=== PATIENT | male | born 1970 | race Two or more races ===

== ENCOUNTER 2024-02-06 17:58 | Inpatient (IN) | payer MEDICAID ==
[~2024-02-06] VITALS: Ht 182.9 cm; Wt 95.3 kg
[2024-02-06 18:07] VITALS: O2SAT 100
[2024-02-06 19:36] LABS: BASOPHILS % 0.6 % (0.0-2.0); EOSINOPHILS % 1.2 % (0.0-5.0); HEMATOCRIT. 45.1 % (42.0-52.0); HEMOGLOBIN. 14.8 g/dL (14.0-18.0); LYMPHOCYTES % 15.4 % (20.0-50.0); MEAN CORPUSCULAR HEMOGLOBIN 28.5 pg (28.0-32.0); MEAN CORPUSCULAR HGB CONC 32.8 g/dL (31.0-37.0); MEAN CORPUSCULAR VOLUME 86.9 fL (80.0-94.0); MEAN PLATELET VOLUME 8.4 fl (7.4-10.4); MONOCYTES % 5.7 % (2.0-8.0); NEUTROPHILS % 77.1 % (40.0-76.0); PLATELET 289 x1000/uL (130-400); RED BLOOD CELL COUNT 5.19 mill/uL (4.7-6.1); RED CELL DISTRIBUTION WIDTH 14.7 % (11.6-14.6); WHITE BLOOD COUNT 6.2 x1000/uL (4.5-11.0)
[2024-02-06 19:42] LABS: CHLORIDE 108 mEq/L (98-107); POTASSIUM 3.2 mEq/L (3.5-5.1); SODIUM 139 mEq/L (136-145)
[2024-02-06 19:43] LABS: CALCIUM 8.7 mg/dL (8.7-10.4); CARBON DIOXIDE 23 mEq/L (21-32)
[2024-02-06 19:48] LABS: CREATININE 1.3 mg/dL (0.6-1.3); GLUCOSE 199 mg/dL (70-105); UREA NITROGEN BLOOD 15 mg/dL (9-23)
[2024-02-06 19:50] LABS: ACETAMINOPHEN < 2 ug/mL (10-30)
[2024-02-06 20:01] LABS: ETHANOL BLOOD < 10 mg/dL (<10); TROPONIN I HIGH SENSITIVITY 191 ng/L (3.0-53)
[2024-02-06] MEDS: POTASSIUM CHLORIDE 20MEQ TABLET SR PO ONE (21:36)
[2024-02-07 02:51] LABS: CLARITY URINE CLOUDY (CLEAR); COLOR URINE DARK YELLOW (YELLOW); GLUCOSE URINE 2+ (NEGATIVE); KETONES URINE NEGATIVE (NEGATIVE); LEUKOCYTE ESTERASE URINE NEGATIVE (NEGATIVE); NITRITE URINE NEGATIVE (NEGATIVE); OCCULT BLOOD URINE NEGATIVE (NEGATIVE); PH URINE 5.5 (4.5-8.0); PROTEIN URINE 2+ (NEGATIVE); UROBILINOGEN URINE 0.2 E.U./dL (0.2-1.0)
[2024-02-07] MEDS ORDERED: ACETAMINOPHEN 325MG TABLET PO PRN (04:00)
[2024-02-07] MEDS ORDERED: ONDANSETRON HCL 4MG/2ML INJ IV PRN (04:00)
[2024-02-07] MEDS ORDERED: HYDROCODONE/ACETAMINOPHEN 5/325MG TABLET PO PRN (04:00)
[2024-02-07 04:38] LABS: TROPONIN I HIGH SENSITIVITY 272 ng/L (3.0-53)
[2024-02-07 04:54] LABS: RBC URINE 0-2 /hpf (0-2); WBC URINE 0-2 /hpf (0-2)
[2024-02-07 04:56] LABS: AMORPHOUS SEDIMENT URINE 1+ /lpf; BACTERIA URINE NONE SEEN; SQUAMOUS EPITHELIAL CELL URINE NONE SEEN /lpf (RARE/1+)
[2024-02-07 06:00] VITALS: BP 168/113; PULSE 93; RESP 20; TEMP 98
[2024-02-07 08:00] VITALS: BP 144/105; PULSE 89; RESP 20; TEMP 97.6
[2024-02-07] MEDS: ENOXAPARIN 40MG/0.4ML SYR SUBCUT SCH (09:32)
[2024-02-07 09:52] LABS: *AMPHETAMINES SCREEN URINE PRESUMPTIVE POSITIVE (NEGATIVE); *BARBITURATES SCREEN URINE NEGATIVE (NEGATIVE); *BENZODIAZEPINES SCREEN URINE NEGATIVE (NEGATIVE); *COCAINE SCREEN URINE NEGATIVE (NEGATIVE); CANNABINOID URINE SCREEN NEGATIVE (NEGATIVE); METHADONE URINE SCREEN NEGATIVE (NEGATIVE); OPIATES URINE SCREEN NEGATIVE (NEGATIVE); PHENCYCLIDINE URINE SCREEN NEGATIVE (NEGATIVE)
[2024-02-07 09:53] LABS: ECSTASY MDMA SCREEN URINE CONF.TEST INDICATED (NEGATIVE)
[2024-02-07 10:14] LABS: HEPATITIS B SURFACE ANTIGEN NEGATIVE (Negative)
[2024-02-07 10:36] LABS: HEPATITIS C AB REACTIVE (Pos) (Negative)
[2024-02-07 12:00] VITALS: BP 147/112; PULSE 89; RESP 20; TEMP 98.6
[2024-02-07] MEDS: ASPIRIN 81MG TABLET PO SCH (12:30)
[2024-02-07] MEDS ORDERED: CLONIDINE 0.1MG TABLET PO SCH (14:00)
[2024-02-07 16:00] VITALS: BP 154/112; PULSE 91; RESP 20; TEMP 96.7
[2024-02-07] MEDS: FUROSEMIDE 20MG/2ML VIAL IVP SCH (17:00)
[2024-02-07 20:00] VITALS: BP 146/104; PULSE 87; RESP 20; TEMP 97.7
[2024-02-07] MEDS: ATORVASTATIN CALCIUM 40MG TABLET PO SCH (20:04)
[2024-02-08] VITALS: BP 142/115; PULSE 86; RESP 22; TEMP 97.9
[2024-02-08 04:00] VITALS: BP 164/123; PULSE 92; RESP 21; TEMP 97.7
[2024-02-08 07:43] LABS: CHLORIDE 106 mEq/L (98-107); POTASSIUM 3.5 mEq/L (3.5-5.1); SODIUM 136 mEq/L (136-145)
[2024-02-08 07:44] LABS: CARBON DIOXIDE 26 mEq/L (21-32)
[2024-02-08 07:45] LABS: CALCIUM 9.2 mg/dL (8.7-10.4)
[2024-02-08 07:49] LABS: CREATININE 1.1 mg/dL (0.6-1.3); GLUCOSE 165 mg/dL (70-105); UREA NITROGEN BLOOD 16 mg/dL (9-23)
[2024-02-08 07:50] LABS: EOSINOPHILS % 2.4 % (0.0-5.0); HEMATOCRIT. 45.6 % (42.0-52.0); HEMOGLOBIN. 15.3 g/dL (14.0-18.0); LYMPHOCYTES % 26.1 % (20.0-50.0); MEAN CORPUSCULAR HEMOGLOBIN 28.6 pg (28.0-32.0); MEAN CORPUSCULAR HGB CONC 33.5 g/dL (31.0-37.0); MEAN CORPUSCULAR VOLUME 85.4 fL (80.0-94.0); MEAN PLATELET VOLUME 8.7 fl (7.4-10.4); MONOCYTES % 5.5 % (2.0-8.0); PLATELET 259 x1000/uL (130-400); RED BLOOD CELL COUNT 5.34 mill/uL (4.7-6.1); RED CELL DISTRIBUTION WIDTH 14.9 % (11.6-14.6); WHITE BLOOD COUNT 6.3 x1000/uL (4.5-11.0)
[2024-02-08 07:51] LABS: ALANINE AMINOTRANSFERASE 20 IU/L (10-49); ALBUMIN 3.9 g/dL (3.2-4.8); ASPARTATE AMINOTRANSFERASE 20 IU/L (<34)
[2024-02-08 07:52] LABS: BILIRUBIN DIRECT 0.3 mg/dL (<=3.0); BILIRUBIN TOTAL 0.8 mg/dL (0.1-1.0); PHOSPHORUS 3.3 mg/dL (2.5-4.9); PROTEIN TOTAL 6.5 g/dL (6.0-8.3)
[2024-02-08 07:53] LABS: T4 FREE 0.91 ng/dL (0.89-1.76); THYROID STIMULATING HORMONE 2.96 uIU/mL (0.55-4.78)
[2024-02-08 08:00] VITALS: BP 155/107; PULSE 92; RESP 20; TEMP 98.1
[2024-02-08 08:11] LABS: TROPONIN I HIGH SENSITIVITY 147 ng/L (3.0-53)
[2024-02-08] MEDS: CLONIDINE 0.1MG TABLET PO PRN (09:06)
[2024-02-08] MEDS ORDERED: ASPI-1160 PO (10:52)
[2024-02-08] MEDS ORDERED: LIP40 PO (10:52)
[2024-02-08] MEDS: AMLODIPINE 5MG TABLET PO SCH (11:15)
[2024-02-08 12:00] VITALS: BP 135/104; PULSE 89; RESP 22; TEMP 97.4
[2024-02-08 16:00] VITALS: BP 138/54; PULSE 90; RESP 20; TEMP 97.6
[2024-02-08 20:39] VITALS: BP 155/115; PULSE 92; RESP 19; TEMP 97.5
[2024-02-09] VITALS: BP 163/102; PULSE 91; RESP 20; TEMP 97.8
[2024-02-09 04:00] VITALS: BP 166/100; PULSE 83; RESP 18; TEMP 97.5
[2024-02-09 06:28] VITALS: BP 141/98
[2024-02-09 07:25] LABS: BASOPHILS % 1.2 % (0.0-2.0); EOSINOPHILS % 2.4 % (0.0-5.0); HEMATOCRIT. 46.6 % (42.0-52.0); HEMOGLOBIN. 15.8 g/dL (14.0-18.0); LYMPHOCYTES % 24.9 % (20.0-50.0); MEAN CORPUSCULAR HEMOGLOBIN 28.6 pg (28.0-32.0); MEAN CORPUSCULAR HGB CONC 33.8 g/dL (31.0-37.0); MEAN CORPUSCULAR VOLUME 84.6 fL (80.0-94.0); MONOCYTES % 7.4 % (2.0-8.0); NEUTROPHILS % 64.1 % (40.0-76.0); PLATELET 269 x1000/uL (130-400); RED BLOOD CELL COUNT 5.51 mill/uL (4.7-6.1); RED CELL DISTRIBUTION WIDTH 14.8 % (11.6-14.6); WHITE BLOOD COUNT 6.3 x1000/uL (4.5-11.0)
[2024-02-09 08:00] VITALS: BP 135/100; PULSE 81; RESP 18; TEMP 97.6
[2024-02-09 08:05] LABS: CHLORIDE 104 mEq/L (98-107); POTASSIUM 3.8 mEq/L (3.5-5.1); SODIUM 139 mEq/L (136-145)
[2024-02-09 08:08] LABS: CALCIUM 9.4 mg/dL (8.7-10.4); CARBON DIOXIDE 27 mEq/L (21-32)
[2024-02-09 08:13] LABS: CREATININE 0.9 mg/dL (0.6-1.3); GLUCOSE 99 mg/dL (70-105); UREA NITROGEN BLOOD 14 mg/dL (9-23)
[2024-02-09 08:15] LABS: ALANINE AMINOTRANSFERASE 15 IU/L (10-49); ALBUMIN 3.8 g/dL (3.2-4.8); ASPARTATE AMINOTRANSFERASE 20 IU/L (<34); BILIRUBIN DIRECT 0.3 mg/dL (<=3.0); BILIRUBIN TOTAL 1.2 mg/dL (0.1-1.0); PHOSPHORUS 3.3 mg/dL (2.5-4.9); PROTEIN TOTAL 6.6 g/dL (6.0-8.3)
== END 2024-02-09 15:15 | disposition left against medical advice (07) | DRG 812 ==
LOC: ER 17:58 → 5WST 20:54 → EDBEDREQ 20:55 → 7WST 02-07 05:25
PROVIDERS: ADMIT Family Medicine Adult Medicine; ATTEND Family Medicine Adult Medicine
DX: T40.411A Poisoning by fentanyl or fentanyl analogs, accidental (unintentional), initial encounter (principal); I11.0 Hypertensive heart disease with heart failure; I50.9 Heart failure, unspecified; F19.10 Other psychoactive substance abuse, uncomplicated; Y92.89 Other specified places as the place of occurrence of the external cause; I44.7 Left bundle-branch block, unspecified; R73.9 Hyperglycemia, unspecified
CPT/HCPCS: 36415; 71045; 80048; 80076; 80305; 80307; 80320; 80329; 81003; 82553; 82962; 83036; 83735; 83880; 84100; 84145; 84439; 84443; 84484; 85025; 86705; 87340; 93005; 93970; 99291; J1650; J1940; G0480